=== PATIENT | female | born 1950 | race Caucasian/White ===

== ENCOUNTER → 2017-04-08 | Outpatient (CLI) | payer BC ==
[~2017-04-08] MED LIST: AGM875 PO; MULT-506
--- NOTE | 2017-04-09 15:17 | MAMMOGRAPHY REPORT ---
BILATERAL DIGITAL SCREENING MAMMOGRAM TOMOSYNTHESIS WITH CAD: 04/08/2017 CLINICAL HISTORY: Routine screening examination. TECHNIQUE: Breast tomosynthesis in addition to standard 2D mammography was performed. Current study was also evaluated with a Computer Aided Detection (CAD) system. COMPARISON: Comparison is made to exams dated: 04/05/2016 mammogram, 03/30/2015 mammogram, 2 mammogram, 11/23/2013 mammogram, 03/19/2011 mammogram, and 02/15/2010 mammogram - [facility]. BREAST COMPOSITION: There are scattered areas of fibroglandular density in both breasts. FINDINGS: There is a stable intramammary lymph node in the right upper outer quadrant. Stable asymme try in the lateral right breast. No suspicious mass, architectural distortion or cluster of microcal cifications is seen. IMPRESSION: ACR BI-RADS CATEGORY 1: NEGATIVE There is no mammographic evidence of malignancy. A 1 year screening mammogram is recommended. The pa tient will receive written notification of the results. Approximately 10% of breast cancers are not detected with mammography. A negative mammographic report should not delay biopsy if a clinically suggestive mass is present. Steph Mazariegos M.D. ay/:04/08/2017 17:23:07 Product Advisor: Maricel MASTERS(Nguyen)(Bj), [facility] letter sent: Normal 1/2 BI-RADS Code: ACR BI-RADS Category 1: Negative
== END | disposition home or self-care (01) ==
LOC: C.MAMM 08:42
PROVIDERS: ATTEND Family Medicine
DX: Z12.31 Encounter for screening mammogram for malignant neoplasm of breast (principal)

== ENCOUNTER 2021-09-13 09:55 | Inpatient (IN) ==
[2021-09-13] MEDS ORDERED: VANCOMYCIN CONSULT ACTIVE PRN ×2 (10:06→19:58)
[2021-09-13] MEDS ORDERED: VANCOMYCIN HCL 1,500 MG in SODIUM CHLORIDE 0.9% 500 ML IV ONE (10:06)
[2021-09-13] MEDS ORDERED: cefTRIAXone SODIUM 1,000 MG/50 ML BAG IV STA (10:06)
--- NOTE | 2021-09-13 10:22 | XRay Report ---
XR chest 1V portable CLINICAL HISTORY: SEPSIS. COMPARISON STUDY: No previous studies for comparison. TECHNIQUE: 1 view of the chest FINDINGS: Single frontal view of the chest demonstrates the cardiomediastinal silhouette to be within normal li mits. The lungs are clear of alveolar opacities. There is no evidence for pleural effusion. There is no evidence for vascular congestion. There is no acute osseous pathology. IMPRESSION: 1. No acute cardiopulmonary disease. ACT 112: Negative or not required by law. Electronically signed by: Denis Alvarez M.D. 09/13/2021 10:21 AM
[2021-09-13 10:48] LABS: Basophils # (auto) 0.03 K/uL (0-0.2); Basophils % (auto) 0.3 %; Eosinophils # (auto) 0.06 K/uL (0-0.5); Eosinophils % (auto) 0.7 %; Hematocrit (blood only) 37.2 % (37-47); Hemoglobin 12.3 g/dL (12.0-16.0); Immature Granulocytes # (auto) 0.01 K/uL (0.00-0.02); Immature Granulocytes % (auto) 0.1 %; Lymphocytes # (auto) 1.65 K/uL (1.2-3.4); Lymphocytes % (auto) 18.1 %; Mean Corpuscular Hemoglobin 29.5 pg (25-34); Mean Corpuscular Hgb Conc 33.1 g/dL (32-36); Mean Corpuscular Volume 89.2 fL (80-100); Mean Platelet Volume 9.3 fL (7.4-10.4); Monocytes # (auto) 1.07 K/uL (0.11-0.59); Monocytes % (auto) 11.7 %; Neutrophils # (auto) 6.31 K/uL (1.4-6.5); Neutrophils % (auto) 69.1 %; Platelet Count 436 K/uL (130-400); RDW Coefficient of Variation 12.8 % (11.5-14.5); RDW Standard Deviation 41.6 fL (36.4-46.3); Red Blood Count 4.17 M/uL (4.2-5.4); White Blood Count 9.13 K/uL (4.8-10.8)
[2021-09-13 11:02] LABS: INR 1.1 (0.9-1.1); Partial Thromboplastin Time 27.9 Seconds (21.0-31.0); Prothrombin Time 11.7 Seconds (9.0-12.0)
--- NOTE | 2021-09-13 11:03 | Emergency Department Note ---
Impression & Plan Bacteremia, Fever of unknown origin, Heart murmur ED Provider Note NAME: BRAD JAIMES AGE: 71 SEX: F : 1950 ARRIVES VIA: Walk-In INFORMANT: Patient, ED PROVIDER(S): Tashi Felix DO CHIEF COMPLAINT: Fever HPI: The patient is a 71-year-old female who presented to the emergency department for an evaluation of fever. The patient states that she has had febrile illness for approximately 3 weeks. She has had a temperature as high as 102-103. She has been alternating Motrin and Tylenol with good relief of her symptoms but then the fever always comes back. She has been noticing pain behind her legs. She denies having any back pain but states sometimes she has pelvic pain which is more into her hips. She denies having any recent traveling or falls. She did have dental work done in June where she had a crown placed. She has no history of heart murmur. She has been seeing her outpatient family doctor for a work-up. She had blood cultures done recently. She was sent to the emergency department today because one blood culture was positive for gram-positive cocci in clusters. She is currently not taking any antibiotics. She has had no rashes. She denies having any lower extremity swelling or shortness of breath. She is had no cough recently. She denies having any hemoptysis. ROS: See above HPI for pertinent positives & negatives. A total of 10 systems reviewed and were otherwise negative. PAST MEDICAL HISTORY: See Below PAST SURGICAL HISTORY: See Below FAMILY HISTORY: See Below SOCIAL HISTORY: See Below HOME MEDICATIONS: See Below ALLERGIES: GENERAL: Patient is awake alert in no acute distress patient is resting comfortably and showing no signs of anxiety EYES: The conjunctivae are clear. The pupils are round and reactive. EARS, NOSE, MOUTH AND THROAT: The nose is without any evidence of any deformity. Mucous membranes are moist. The recent dental crown was noted. There is no swelling of the gumline. NECK: The neck is nontender and supple. RESPIRATORY: Normal respiratory effort is noted there is no evidence of wheezing rhonchi or rales CARDIOVASCULAR: Regular rate and rhythm was noted to auscultation. Systolic murmur was suggested. GASTROINTESTINAL: The abdomen is soft. Abdomen is nontender. PELVIS: The Pelvis is stable. No tenderness to palpation is noted. BACK: No midline tenderness or or step-off noted range of motion in flexion extension as well as rotation no signs of muscle spasm noted MUSCULOSKELETAL/EXTREMITIES: There is no evidence of gross deformity full range of motion is noted in the hips and shoulders. SKIN: There is no obvious evidence of any rash. There are no petechiae, pallor or cyanosis noted. NEUROLOGIC: Patient is awake alert and oriented x3 VITALS: See Below PHYSICAL EXAMINATION: MEDICAL DECISION MAKING: The patient is a 71-year-old female who presented to the emergency department for an evaluation of fever. The patient's had ongoing fever for the last few weeks. She has been having an patient work-up by her primary care physician. Your she was noted to have a positive blood culture from 2 days ago. She was sent to the emergency department for further evaluation. She did have a history of recent dental work. I think I might be able to hear a heart murmur. I discussed the patient's laboratory and radiographic studies with her. She was treated in the emergency department with antibiotics for presumed bacteremia. I discussed her case with the on-call [facility]. They have agreed to evaluate the patient in the emergency department for further management and disposition. Triage Nursing notes reviewed. Prior medical records reviewed Vital Signs: reviewed and remarkable for elevated blood pressure. Differential diagnosis: Viral syndrome, otitis, pharyngitis, pneumonia, influenza, meningitis, urinary tract infection, sepsis, bacteremia, as well as other pathologies. ER treatment provided: See below Diagnostics interpreted by me: ECG: EKG was obtained in the emergency department. My interpretation is normal sinus rhythm at 88 bpm. There is no ectopy. There is no acute ST segment abnormalities noted. This was compared to a tracing from July 162001. No changes were noted. Cardiac Monitoring: An order was placed for continuous cardiac monitoring. The monitor shows a rate of 84 bpm with sinus rhythm. Laboratory studies: As stated above and show below. Imaging studies: See below Consultation(s): I discussed this case with Dr. Mancera who is on-call for the [facility] group. Past Med/Surg History Social History Smoking Status: Never smoker Feels Safe at Home: Yes Allergies Allergies Allergy/AdvReac Type Severity Reaction Status Date / Time MUSCLE RELAXANTS AdvReac Unknown unable to Uncoded 09/13/21 11:31 void Home Meds Home Medications Medication Instructions Recorded Confirmed Glucosamin & Chond Tab 1 tab PO BID 09/13/21 09/13/21 acetaminophen 500 mg tablet 500 mg PO Q6H PRN 09/13/21 09/13/21 (Tylenol Extra Strength) [id number] tablet 1 tab PO DAILY 09/13/21 09/13/21 cholecalciferol (vitamin D3) 50 50 mcg PO DAILY 09/13/21 09/13/21 mcg (2,000 unit) tablet (Vitamin D3) cinnamon bark 500 mg capsule 500 mg PO Q OTHER DAY 09/13/21 09/13/21 (Cinnamon) coQ10 (ubiquinol) 200 mg capsule 0 mg PO DAILY 09/13/21 09/13/21 beck (Zingiber officinalis) 250 0 mg PO Q OTHER DAY 09/13/21 09/13/21 mg capsule (beck extract) ibuprofen 200 mg tablet (IBU-200) 200 mg PO Q6H PRN 09/13/21 09/13/21 lysine 500 mg capsule 500 mg PO DAILY 09/13/21 09/13/21 multivitamin with minerals 1 tab PO DAILY 09/13/21 09/13/21 omega-3 fatty acids 1,000 mg PO DAILY 09/13/21 09/13/21 red yeast rice 600 mg capsule 0 mg PO BID 09/13/21 09/13/21 Results & Data (ED) Vital Signs Vital Signs - 24 hr 09/13/21 09:59 09/13/21 10:30 09/13/21 10:42 Temperature 37.2 C Temperature Source Oral Pulse Rate 100 H 88 Pulse Rate from SpO2 Sensor 88 Respiratory Rate 18 14 Blood Pressure 168/95 H Blood Pressure Mean 119 Pulse Oximetry 95 97 98 Oxygen Delivery Method Room Air Room Air Sepsis Recent Fever Within 48 Hours No Sepsis New/Unexplained Change in Mental Status No Sepsis Action Taken by Nursing No Action Required 09/13/21 11:00 09/13/21 11:30 09/13/21 12:00 Temperature Temperature Source Pulse Rate 88 85 83 Pulse Rate from SpO2 Sensor 87 85 84 Respiratory Rate 17 17 15 Blood Pressure 130/92 143/92 H 139/84 Blood Pressure Mean 104 109 102 Pulse Oximetry 98 98 97 Oxygen Delivery Method Sepsis Recent Fever Within 48 Hours Sepsis New/Unexplained Change in Mental Status Sepsis Action Taken by Nursing 09/13/21 12:30 09/13/21 13:07 09/13/21 13:30 Temperature Temperature Source Pulse Rate 87 175 H 92 H Pulse Rate from SpO2 Sensor 87 92 H Respiratory Rate 18 16 23 Blood Pressure 150/93 H 141/87 H Blood Pressure Mean 112 105 Pulse Oximetry 98 97 Oxygen Delivery Method Sepsis Recent Fever Within 48 Hours Sepsis New/Unexplained Change in Mental Status Sepsis Action Taken by Nursing 09/13/21 14:00 09/13/21 14:30 09/13/21 15:00 Temperature Temperature Source Pulse Rate 86 88 84 Pulse Rate from SpO2 Sensor 86 94 H 84 Respiratory Rate 16 26 H 26 H Blood Pressure 148/91 H 165/94 H 160/89 H Blood Pressure Mean 110 117 112 Pulse Oximetry 98 96 98 Oxygen Delivery Method Sepsis Recent Fever Within 48 Hours Sepsis New/Unexplained Change in Mental Status Sepsis Action Taken by [facility] Medications Current Medication List: was personally reviewed by me Laboratory Data Attestation: I reviewed the patient's lab results. Result diagrams: 09/13/21 10:36 09/13/21 10:36 Lab Results 09/13/21 09/13/21 09/13/21 Range/Units 10:36 10:36 10:36 WBC 9.13 (4.8-10.8) K/uL RBC 4.17 L (4.2-5.4) M/uL Hgb 12.3 (12.0-16.0) g/dL Hct 37.2 (37-47) % MCV 89.2 (80-100) fL MCH 29.5 (25-34) pg MCHC 33.1 (32-36) g/dL RDW Std Deviation 41.6 (36.4-46.3) fL RDW Coeff of Jasmyn 12.8 (11.5-14.5) % Plt Count 436 H (130-400) K/uL MPV 9.3 (7.4-10.4) fL Immature Gran % (Auto) 0.1 % Neut % (Auto) 69.1 % Lymph % (Auto) 18.1 % Braxton % (Auto) 11.7 % Eos % (Auto) 0.7 % Baso % (Auto) 0.3 % Neut # (Auto) 6.31 (1.4-6.5) K/uL Lymph # (Auto) 1.65 (1.2-3.4) K/uL Braxton # (Auto) 1.07 H (0.11-0.59) K/uL Eos # (Auto) 0.06 (0-0.5) K/uL Baso # (Auto) 0.03 (0-0.2) K/uL Immature Gran # (Auto) 0.01 (0.00-0.02) K/uL ESR 83 H (0-30) mm/hr PT 11.7 (9.0-12.0) Seconds INR 1.1 (0.9-1.1) APTT 27.9 (21.0-31.0) Seconds PTT Ratio 1.0 Sodium (136-145) mmol/L Potassium (3.5-5.1) mmol/L Chloride (98-107) mmol/L Carbon Dioxide (21-32) mmol/L Anion Gap (3-11) BUN (6-23) mg/dl Creatinine (0.6-1.2) mg/dl Est Cr Clr Drug Dosing ml/min Est GFR ( Amer) ml/min Est GFR (Non-Af Amer) ml/min BUN/Creatinine Ratio (10-20) Glucose (70-99(Fasting)) mg/dl Lactate (0.4-2.0) mmol/L Calcium (8.5-10.1) mg/dl Magnesium (1.7-2.4) mg/dl Total Bilirubin (0.2-1.0) mg/dl AST (13-39) U/L ALT (7-52) U/L Alkaline Phosphatase (34-104) U/L Troponin I (0-0.04) ng/ml C-Reactive Protein (0-0.5) mg/dl Total Protein (6.0-8.3) gm/dl Albumin (3.4-5.0) gm/dl Globulin (2.5-4.0) gm/dl Albumin/Globulin Ratio (0.9-2) Procalcitonin (0-0.5) ng/ml Urine Color Urine Appearance (Clear) Urine pH (4.5-7.5) Ur Specific Bradford (1.000-1.030) Urine Protein (Negative) Urine Glucose (UA) (Negative) Urine Ketones (Negative) Urine Blood (Negative) Urine Nitrite (Negative) Urine Bilirubin (Negative) Urine Urobilinogen (Negative) Ur Leukocyte Esterase (Negative) Urine WBC (Auto) (0-5) /hpf Urine RBC (Auto) (0-4) /hpf U Hyaline Cast (Auto) (0-5) /lpf U Epithel Cells (Auto) (0-5) /lpf Urine Bacteria (Auto) (Negative) Anaplasma Smear Lyme Disease IgG Ab (Negative) Lyme Disease IgM Ab (Negative) Monoscreen (Negative) 09/13/21 09/13/21 09/13/21 Range/Units 10:36 10:36 10:36 WBC (4.8-10.8) K/uL RBC (4.2-5.4) M/uL Hgb (12.0-16.0) g/dL Hct (37-47) % MCV (80-100) fL MCH (25-34) pg MCHC (32-36) g/dL RDW Std Deviation (36.4-46.3) fL RDW Coeff of Jasmyn (11.5-14.5) % Plt Count (130-400) K/uL MPV (7.4-10.4) fL Immature Gran % (Auto) % Neut % (Auto) % Lymph % (Auto) % Braxton % (Auto) % Eos % (Auto) % Baso % (Auto) % Neut # (Auto) (1.4-6.5) K/uL Lymph # (Auto) (1.2-3.4) K/uL Braxton # (Auto) (0.11-0.59) K/uL Eos # (Auto) (0-0.5) K/uL Baso # (Auto) (0-0.2) K/uL Immature Gran # (Auto) (0.00-0.02) K/uL ESR (0-30) mm/hr PT (9.0-12.0) Seconds INR (0.9-1.1) APTT (21.0-31.0) Seconds PTT Ratio Sodium 138 (136-145) mmol/L Potassium 3.9 (3.5-5.1) mmol/L Chloride 103 (98-107) mmol/L Carbon Dioxide 29 (21-32) mmol/L Anion Gap 6 (3-11) BUN 13 (6-23) mg/dl Creatinine 0.57 L (0.6-1.2) mg/dl Est Cr Clr Drug Dosing 91.5 ml/min Est GFR ( Amer) 108.9 ml/min Est GFR (Non-Af Amer) 93.9 ml/min BUN/Creatinine Ratio 22.8 H (10-20) Glucose 97 (70-99(Fasting)) mg/dl Lactate 0.8 (0.4-2.0) mmol/L Calcium 8.9 (8.5-10.1) mg/dl Magnesium 1.9 (1.7-2.4) mg/dl Total Bilirubin 0.6 (0.2-1.0) mg/dl AST 19 (13-39) U/L ALT 31 (7-52) U/L Alkaline Phosphatase 71 (34-104) U/L Troponin I < 0.03 (0-0.04) ng/ml C-Reactive Protein 4.89 H (0-0.5) mg/dl Total Protein 6.9 (6.0-8.3) gm/dl Albumin 3.3 L (3.4-5.0) gm/dl Globulin 3.6 (2.5-4.0) gm/dl Albumin/Globulin Ratio 0.9 (0.9-2) Procalcitonin < 0.05 (0-0.5) ng/ml Urine Color Urine Appearance (Clear) Urine pH (4.5-7.5) Ur Specific Bradford (1.000-1.030) Urine Protein (Negative) Urine Glucose (UA) (Negative) Urine Ketones (Negative) Urine Blood (Negative) Urine Nitrite (Negative) Urine Bilirubin (Negative) Urine Urobilinogen (Negative) Ur Leukocyte Esterase (Negative) Urine WBC (Auto) (0-5) /hpf Urine RBC (Auto) (0-4) /hpf U Hyaline Cast (Auto) (0-5) /lpf U Epithel Cells (Auto) (0-5) /lpf Urine Bacteria (Auto) (Negative) Anaplasma Smear Lyme Disease IgG Ab (Negative) Lyme Disease IgM Ab (Negative) Monoscreen (Negative) 09/13/21 09/13/21 09/13/21 Range/Units 13:45 13:45 13:45 WBC (4.8-10.8) K/uL RBC (4.2-5.4) M/uL Hgb (12.0-16.0) g/dL Hct (37-47) % MCV (80-100) fL MCH (25-34) pg MCHC (32-36) g/dL RDW Std Deviation (36.4-46.3) fL RDW Coeff of Jasmyn (11.5-14.5) % Plt Count (130-400) K/uL MPV (7.4-10.4) fL Immature Gran % (Auto) % Neut % (Auto) % Lymph % (Auto) % Braxton % (Auto) % Eos % (Auto) % Baso % (Auto) % Neut # (Auto) (1.4-6.5) K/uL Lymph # (Auto) (1.2-3.4) K/uL Braxton # (Auto) (0.11-0.59) K/uL Eos # (Auto) (0-0.5) K/uL Baso # (Auto) (0-0.2) K/uL Immature Gran # (Auto) (0.00-0.02) K/uL ESR (0-30) mm/hr PT (9.0-12.0) Seconds INR (0.9-1.1) APTT (21.0-31.0) Seconds PTT Ratio Sodium (136-145) mmol/L Potassium (3.5-5.1) mmol/L Chloride (98-107) mmol/L Carbon Dioxide (21-32) mmol/L Anion Gap (3-11) BUN (6-23) mg/dl Creatinine (0.6-1.2) mg/dl Est Cr Clr Drug Dosing ml/min Est GFR ( Amer) ml/min Est GFR (Non-Af Amer) ml/min BUN/Creatinine Ratio (10-20) Glucose (70-99(Fasting)) mg/dl Lactate (0.4-2.0) mmol/L Calcium (8.5-10.1) mg/dl Magnesium (1.7-2.4) mg/dl Total Bilirubin (0.2-1.0) mg/dl AST (13-39) U/L ALT (7-52) U/L Alkaline Phosphatase (34-104) U/L Troponin I (0-0.04) ng/ml C-Reactive Protein (0-0.5) mg/dl Total Protein (6.0-8.3) gm/dl Albumin (3.4-5.0) gm/dl Globulin (2.5-4.0) gm/dl Albumin/Globulin Ratio (0.9-2) Procalcitonin (0-0.5) ng/ml Urine Color Yellow Urine Appearance Clear (Clear) Urine pH 6.0 (4.5-7.5) Ur Specific Bradford 1.007 (1.000-1.030) Urine Protein Negative (Negative) Urine Glucose (UA) Negative (Negative) Urine Ketones Trace H (Negative) Urine Blood Trace H (Negative) Urine Nitrite Negative (Negative) Urine Bilirubin Negative (Negative) Urine Urobilinogen Negative (Negative) Ur Leukocyte Esterase Trace H (Negative) Urine WBC (Auto) 1-5 (0-5) /hpf Urine RBC (Auto) 0-4 (0-4) /hpf U Hyaline Cast (Auto) 0 (0-5) /lpf U Epithel Cells (Auto) 0-5 (0-5) /lpf Urine Bacteria (Auto) Negative (Negative) Anaplasma Smear See Comment Lyme Disease IgG Ab Negative (Negative) Lyme Disease IgM Ab Negative (Negative) Monoscreen Negative (Negative) Administered Medications Discontinued Medications Ceftriaxone Sodium (Rocephin) 1,000 mg in 50 mls @ 100 mls/hr IV NOW STA Stop: 09/13/21 10:35 Last Infusion: 09/13/21 11:27 Dose: 0 mls/hr Documented by: [id number] Admin: 09/13/21 10:58 Dose: 100 mls/hr Documented by: [id number] Vancomycin HCl 1,500 mg/ (Sodium Chloride) 530 mls @ 200 mls/hr IV NOW ONE Stop: 09/13/21 12:44 Last Infusion: 09/13/21 14:29 Dose: 0 mls/hr Documented by: [id number] Admin: 09/13/21 11:28 Dose: 200 mls/hr Documented by: [id number] Imaging Data Radiologist's Impression: Chest X-Ray 09/13/21 10:06 XR chest 1V portable CLINICAL HISTORY: SEPSIS. COMPARISON STUDY: No previous studies for comparison. TECHNIQUE: 1 view of the chest FINDINGS: Single frontal view of the chest demonstrates the cardiomediastinal silhouette to be within normal limits. The lungs are clear of alveolar opacities. There is no evidence for pleural effusion. There is no evidence for vascular congestion. There is no acute osseous pathology. IMPRESSION: 1. No acute cardiopulmonary disease. ACT 112: Negative or not required by law. Electronically signed by: Denis Alvarez M.D. 09/13/2021 10:21 AM Ankle X-Ray 09/13/21 13:18 XR ankle LT min 3V routine CLINICAL HISTORY: new left ankle swelling. COMPARISON STUDY: No previous studies for comparison. TECHNIQUE: 3 left ankle views FINDINGS: Bones: There is no evidence for an acute fracture or dislocation. There is a small calcaneal spur at the origin of the plantar fascia. There is no lytic or blastic lesion. Joints: The joint spaces are maintained. The bones are in anatomic alignment. Soft tissues: There is no focal soft tissue abnormality. There is no radiopaque foreign body. IMPRESSION: 1. No acute osseous pathology. Calcaneal spur. ACT 112: Negative or not required by law. Electronically signed by: Denis Alvarez M.D. 09/13/2021 2:17 PM Discharge Plan Visit Data Chief Complaint: Abnormal Labs/Diagnostic Testing Stated Complaint: DR CORTEZ, ABNORMAL LABS ED Provider: Tashi Felix Discharge Problem: Bacteremia, Fever of unknown origin, Heart murmur Patient Disposition: Being Evaluated by Hospitalist Forms Stand Alone Forms: [facility] Prescriptions Prescriptions: No Action multivitamin with minerals Tablet 1 tab PO DAILY RF: 0 lysine 500 mg Capsule 500 mg PO DAILY RF: 0 acetaminophen [Tylenol Extra Strength] 500 mg Tablet 500 mg PO Q6H PRN (Reason: Fever Or Pain) RF: 0 [id number] Tablet 1 tab PO DAILY RF: 0 beck extract 250 mg Capsule 0 mg PO Q OTHER DAY RF: 0 ibuprofen [IBU-200] 200 mg Tablet 200 mg PO Q6H PRN (Reason: Fever Or Pain) RF: 0 Fish Oil Capsule 1,000 mg PO DAILY RF: 0 cinnamon bark [Cinnamon] 500 mg Capsule 500 mg PO Q OTHER DAY RF: 0 red yeast rice 600 mg Capsule 0 mg PO BID RF: 0 cholecalciferol (vitamin D3) [Vitamin D3] 50 mcg (2,000 unit) Tablet 50 mcg PO DAILY RF: 0 coQ10 (ubiquinol) 200 mg Capsule 0 mg PO DAILY RF: 0 Glucosamin & Chond Tab 1 tab PO BID RF: 0 Referrals Referrals: Kuldip Mello MD [Primary Care Provider] -
[2021-09-13 11:04] LABS: Troponin I < 0.03 ng/ml (0-0.04)
[2021-09-13 11:09] LABS: Alanine Aminotransferase 31 U/L (7-52); Albumin Globulin Ratio 0.9 (0.9-2); Albumin Level 3.3 gm/dl (3.4-5.0); Alkaline Phosphatase 71 U/L (34-104); Anion Gap 6 (3-11); Aspartate Aminotransferase 19 U/L (13-39); BUN Creatinine Ratio 22.8 (10-20); Bilirubin,Total 0.6 mg/dl (0.2-1.0); Blood Urea Nitrogen 13 mg/dl (6-23); C Reactive Protein 4.89 mg/dl (0-0.5); Calcium 8.9 mg/dl (8.5-10.1); Carbon Dioxide 29 mmol/L (21-32); Chloride 103 mmol/L (98-107); Creatinine Clr Calc Pharmacy 91.5 ml/min; Est GFR (African American) 108.9 ml/min; Est GFR (Non-African American) 93.9 ml/min; Globulin 3.6 gm/dl (2.5-4.0); Glucose 97 mg/dl (70-99(Fasting)); Magnesium 1.9 mg/dl (1.7-2.4); Potassium 3.9 mmol/L (3.5-5.1); Sodium 138 mmol/L (136-145); Total Protein 6.9 gm/dl (6.0-8.3)
--- NOTE | 2021-09-13 12:05 | History & Physical Report ---
Date of Service September 13, 2021 Assessment & Plan (1) Bacteremia: Plan: -Outpatient blood culture grew gram-positive cocci in clusters. In the setting of ongoing fever of unknown origin for 3 to 4 weeks with large joint stiffness, murmur appreciated on exam. Dental work end of June. Presentation is concerning for endocarditis. -Echo ordered, repeat blood cultures. -Chest CT, lumbar MRI, CT abdomen+pelvis ordered for further evaluation of fever with unknown origin without significant findings and with c/o lower back pain. -Also will recheck for Lyme, anaplasmosis, EBV, Monospot -Started empirically on vancomycin and ceftriaxone in ED, will continue this, c an tailor as more results become available. -Tylenol PRN for Tylenol, pain. (2) Fever: (3) Ankle edema: Plan: -Without injury or pain, new over the past week. -X-Ray today without evidence of fracture or other acute process. (4) Hyperlipidemia: Plan: -Previously on Crestor, discontinued due to elevated LFTs. -Will continue to monitor LFTs. (5) Thrombocytosis: Plan: And acute phase reactant to ongoing inflammation and/or infection (6) Lower back pain: (7) Arthralgia: Plan: -Admit to [facility] with telemetry. -SCDs, Lovenox for DVT prophylaxis. -Full code. History of Present Illness Primary Care Provider: Kuldip Mello MD Patient is 71-year-old female with past medical history of hyperlipidemia and crown placement at the end of June who presents today upon referral from her PCP due to ongoing fever for the past 3 weeks with a recent blood culture positive for gram positive cocci in clusters. Patient had been feeling in her normal state of health until the end of June, several yoga poses were more difficult for her due to stiffness at her hip, knee, shoulder and neck joints. She made an extra effort to stretch out more and hydrate, however stiffness persisted. She does notice that is initially worst in the morning, after several hours of moving, it is better. She also notes stiffness and difficulty with locomotion within the first few steps of ambulation, however after several strides, is better. Then in the beginning of August, patient began to develop low-grade fevers around 99-100.0 every few days. She had taken several home Covid tests which had all been negative. Over the past several weeks, these fevers have become more frequent occurring nearly every day. They are typically around 100-101, however she notes highest temp has been 103. She has been taking Tylenol and ibuprofen for them, which they have been responding to, however always come back. She had recent dental work in June when a crown was placed, otherwise denies any recent procedures, denies IV drug use, denies recent travel, known tick bites, however patient is outside in her yard often. Also, she has noticed mild left ankle edema over the past week without recent injury or any pain. Other than the above, patient has been feeling generally well without rashes, chills, weight loss, appetite loss, chest pain, palpitations, shortness of breath, cough, nausea, vomiting, abdominal pain. Joint stiffness is limited to the bilateral hips, knees, neck, lower back, and shoulders. Ibuprofen and chiropractor appts has helped with this somewhat. She has not had any significant pain at the site of the dental crown placement. Denies cardiac history, no valve replacement. Also denies a personal history of rheumatologic or autoimmune disease, does report mother and grandmother had ALS, otherwise no family history of rheumatologic or autoimmune disease. Patient had been on Crestor since March 2021, however the middle of August she reports her AST and ALT became elevated so she was instructed to discontinue the Crestor. On September 11, AST and ALT continued to rise to 75 and 97 respectively. Otherwise, she is on several supplements, Tylenol ibuprofen for fever/joint stiffness, otherwise no other home medications. Allergies Allergy/AdvReac Type Severity Reaction Status Date / Time MUSCLE RELAXANTS AdvReac Unknown unable to Uncoded 09/13/21 11:31 void Home Medications Medication Instructions Recorded Confirmed Type Glucosamin & Chond Tab 1 tab PO BID 09/13/21 09/13/21 History acetaminophen 500 mg tablet 500 mg PO Q6H PRN 09/13/21 09/13/21 History (Tylenol Extra Strength) obazktm-obieexxkf-gcoi tablet 1 tab PO DAILY 09/13/21 09/13/21 History cholecalciferol (vitamin D3) 50 50 mcg PO DAILY 09/13/21 09/13/21 History mcg (2,000 unit) tablet (Vitamin D3) cinnamon bark 500 mg capsule 500 mg PO Q OTHER DAY 09/13/21 09/13/21 History (Cinnamon) coQ10 (ubiquinol) 200 mg capsule 0 mg PO DAILY 09/13/21 09/13/21 History beck (Zingiber officinalis) 250 0 mg PO Q OTHER DAY 09/13/21 09/13/21 History mg capsule (beck extract) ibuprofen 200 mg tablet (IBU-200) 200 mg PO Q6H PRN 09/13/21 09/13/21 History lysine 500 mg capsule 500 mg PO DAILY 09/13/21 09/13/21 History multivitamin with minerals 1 tab PO DAILY 09/13/21 09/13/21 History omega-3 fatty acids 1,000 mg PO DAILY 09/13/21 09/13/21 History red yeast rice 600 mg capsule 0 mg PO BID 09/13/21 09/13/21 History Past Med/Surg History Medical History Hyperlipidemia Family History Grandmother ALS (amyotrophic lateral sclerosis) Mother ALS (amyotrophic lateral sclerosis) Social History Smoking Status: Never smoker Second Hand Exposure: No; Do You Dip or Chew Tobacco: No; Tobacco Cessation Education Requested by Patient: No Hx Alcohol Use: Yes Alcohol type: beer and wine Hx Substance Use: No Preferred Language: Jordanian Communication Ability: Effective Maintenance Instructor Required: No Beliefs That Will Affect Care: None Current Living Situation: Spouse Other Information That Helps Us Care for You: No Feels Safe at Home: Yes Safety Concerns: Feels Safe At This Time Assistive Devices: Glasses Assistive Devices Comment: reading glasses Review of Systems Review of Systems: Constitutional: Daily fevers, but denies chills, anorexia, generalized weakness, fatigue. Eyes: No diplopia, no worsening or blurred vision ENT: normal hearing, no trouble swallowing Respiratory: No cough, sputum, dyspnea at rest or on exertion Cardiovascular: No chest pain, tightness or palpitations Abdomen: No pain, nausea, vomiting, diarrhea or constipation Musculoskeletal: Reports neck, bilateral shoulder, bilateral hip, and bilateral knee joint stiffness x2 months, left ankle swelling x1 week, denies joint warmth or redness Neurologic: No weakness, numbness/tingling, or balance problems Psychiatric: No anxiety or depression Skin: No rash or itch Physical Exam Physical Exam: General: awake, alert, no apparent distress Head: Normocephalic, atraumatic ENT: PERRL, EOMI, no pharyngeal exudate, mucous membranes moist Chest: Clear to auscultation, on room air, no adventitious breath sounds Cardiac: Regular rate and rhythm, no obvious murmur appreciated; no JVD, normal peripheral pulses, good capillary refill Abdominal: NABS x 4 quadrants, soft, nontender to palpation, no rebound, guarding or tenderness Extremities: Normal inspection, no peripheral edema or erythema, calfs nontender to palpation Psych: Normal mood and affect Neuro: AAO x 3, strength intact bilaterally and rated 5/5, no motor deficits, speech is clear, no peripheral sensory deficits Skin: No rash or erythema, specifically no [place] lesions or Osler nodes, no splinter hemorrhages Results & Data Results & Data ([facility]) Vital Signs (Past 12 Hours) Vital Signs Temp Pulse Resp BP Pulse Ox 09/13/21 10:30 97 09/13/21 09:59 37.2 C 100 H 18 168/95 H 95 Laboratory Results Abnormal lab results 09/13/21 09/13/21 09/13/21 Range/Units 10:36 10:36 10:36 RBC 4.17 L (4.2-5.4) M/uL Plt Count 436 H (130-400) K/uL [place] # (Auto) 1.07 H (0.11-0.59) K/uL ESR 83 H (0-30) mm/hr Creatinine 0.57 L (0.6-1.2) mg/dl BUN/Creatinine Ratio 22.8 H (10-20) C-Reactive Protein 4.89 H (0-0.5) mg/dl Albumin 3.3 L (3.4-5.0) gm/dl Diagnostic Findings Chest X-Ray 09/13/21 10:06 XR chest 1V portable CLINICAL HISTORY: SEPSIS. COMPARISON STUDY: No previous studies for comparison. TECHNIQUE: 1 view of the chest FINDINGS: Single frontal view of the chest demonstrates the cardiomediastinal silhouette to be within normal limits. The lungs are clear of alveolar opacities. There is no evidence for pleural effusion. There is no evidence for vascular congestion. There is no acute osseous pathology. IMPRESSION: 1. No acute cardiopulmonary disease. ACT 112: Negative or not required by law. Electronically signed by: Denis Alvarez M.D. 09/13/2021 10:21 AM Ankle X-Ray 09/13/21 13:18 XR ankle LT min 3V routine CLINICAL HISTORY: new left ankle swelling. COMPARISON STUDY: No previous studies for comparison. TECHNIQUE: 3 left ankle views FINDINGS: Bones: There is no evidence for an acute fracture or dislocation. There is a small calcaneal spur at the origin of the plantar fascia. There is no lytic or blastic lesion. Joints: The joint spaces are maintained. The bones are in anatomic alignment. Soft tissues: There is no focal soft tissue abnormality. There is no radiopaque foreign body. IMPRESSION: 1. No acute osseous pathology. Calcaneal spur. ACT 112: Negative or not required by law. Electronically signed by: Denis Alvarez M.D. 09/13/2021 2:17 PM Abdomen/Pelvis CT 09/13/21 14:41 CT abd pelvis IV con only CLINICAL HISTORY: fever unknown origin,low back pain, evaluate for absces COMPARISON STUDY: No previous studies for comparison. CT DOSE: 514.14 mGy.cm TECHNIQUE: Standard CT of the Abdomen and Pelvis was performed with IV contrast. A dose lowering technique was utilized adhering to the principles of ALARA. Contrast Volume: Optiray 320, 91 ml. The patient did not receive oral contrast. FINDINGS: Abdominal cavity: There is no evidence for abdominal mass, adenopathy or ascites. Liver: There is homogeneous attenuation of the liver parenchyma. There is no evidence for enhancing mass lesion. Spleen: There is homogeneous attenuation of the splenic parenchyma. There is no enhancing mass lesion. Pancreas: There is homogeneous attenuation of the pancreatic parenchyma. There is no evidence for mass lesion or peripancreatic fluid collection. Gall Bladder: The gallbladder is well distended with no evidence for intraluminal calculi, wall thickening or pericholecystic edema. Adrenal glands: There is a low-attenuation left adrenal nodule measuring 3.4 x 1.6 cm. This is most characteristic of an adenoma. The right adrenal gland is within normal limits. Kidneys: There is homogeneous attenuation of the renal parenchyma bilaterally. There is no evidence for renal calculus or hydronephrosis. There is no evidence for enhancing mass. Bowel: The bowel loops are normally placed within the abdomen and pelvis without evidence for dilatation or obstruction. There is no evidence for mass lesion. There is very minimal sigmoid diverticulosis without evidence for diverticulitis. There are no inflammatory changes present. There is no evidence for free air. The appendix is not visualized. Bladder: The bladder is within normal limits with no evidence for focal mass, calculus or diverticulum. There is a pessary-type appliance present adjacent to the floor of the bladder. : There is no evidence for pelvic mass or adenopathy. There is no evidence for pelvic ascites. Vasculature: There is no evidence for aneurysmal dilatation of the abdominal aorta. Atherosclerotic calcification is present. Osseous structures: There is no acute osseous pathology. Degenerative changes are seen. Please see MR of the lumbar spine for further evaluation. IMPRESSION: 1. No acute intra-abdominal or pelvic abnormality. Additional nonacute findings are delineated above. ACT 112: Negative or not required by law. Electronically signed by: Denis Alvarez M.D. 09/13/2021 5:[address] 09/13/21 14:41 CT chest diagnostic w con CLINICAL HISTORY: fever unknown origin COMPARISON STUDY: Portable chest from 09/13/2021 CT DOSE: TECHNIQUE: Standard CT of the Chest was performed with IV contrast. A dose lowering technique was utilized adhering to the principles of ALARA. Contrast Volume: Optiray 320, 91 ml FINDINGS: Thyroid: There is a multinodular thyroid present. Airway: The airway is clear. No endobronchial lesion is identified. Lungs: There is atelectasis versus scarring at the right lung base. The lungs are otherwise clear of acute alveolar opacities, air bronchograms or pulmonary nodules. Pleura: There is no evidence for pleural effusion. There is no evidence for pneumothorax. Mediastinum: There is no evidence for pathologic adenopathy. The heart size is within normal limits. Coronary artery calcifications present. The thoracic aorta is within normal limits. Atherosclerotic calcification is present. There is no evidence for pericardial effusion. Osseous structures: There is no acute osseous pathology. IMPRESSION: 1. Atelectasis versus scarring at the right lung base. 2. Otherwise, no acute chest disease. 3. Coronary artery calcification. ACT 112: Negative or not required by law. Electronically signed by: Denis Alvarez M.D. 09/13/2021 5:24 PM Lumbar Spine MRI 09/13/21 14:41 MR lumbar spine wo/w con CLINICAL HISTORY: bacteremia,lower back pain, evaluate for abscess,discitis/OM. TECHNIQUE: Multiplanar multisequence images of the Lumbar Spine were performed with and without IV contrast. Contrast Volume: 7.5 ml of Gadavist COMPARISON: None. FINDINGS: There is no evidence for vertebral body fracture. The heights of the vertebral bodies are maintained. There is degenerative grade 1/4 spondylolisthesis of L4 on L5. The remaining lumbar vertebral bodies are in anatomic alignment. Homogeneous marrow signal is seen without evidence for marrow edema or marrow replacement. There is no MR evidence for osteomyelitis. There is no abnormal enhancement following contrast administration. There is no MR evidence for discitis. T12-L1: The disc space height is maintained. There are no focal disc protrusions or extrusions identified. The thecal sac and epidural fat are maintained. The neural foramen are patent bilaterally. There is no evidence for nerve root encroachment. The facet joints are within normal limits. L1-2: The disc space height is maintained. There are no focal disc protrusions or extrusions identified. The thecal sac and epidural fat are maintained. The neural foramen are patent bilaterally. There is no evidence for nerve root encroachment. The facet joints are within normal limits. L2-3: There is mild disc space narrowing with diffuse bulging of the annulus present. There are no focal disc protrusions or extrusions identified. However, there is flattening of thecal sac anteriorly and mild encroachment upon the origin of the left neural foramen compared to the right. Thickening of ligamentum flavum is also present bilaterally. The combination of these findings produce mild central canal stenosis There is no evidence for nerve root encroachment. Mild hypertrophic facet joint disease is seen bilaterally. L3-4: There is mild disc space narrowing with diffuse bulging of the annulus present. There are no focal disc protrusions or extrusions identified. However, there is flattening of thecal sac anteriorly and mild encroachment upon the origin of the left neural foramen compared to the right. Thickening of ligamentum flavum is also present bilaterally. The combination of these findings produce mild central canal stenosis There is no evidence for nerve root encroachment. Mild to moderate hypertrophic facet joint disease is seen bilaterally. L4-5: There is again degenerative grade 1/4 spondylolisthesis of L4 on L5 with moderate disc space narrowing and diffuse bulging of the annulus present. There are no focal disc protrusions or extrusions identified. There is flattening of thecal sac anteriorly and encroachment upon the neural foramen bilaterally. Moderate hypertrophic facet joint disease with thickening of ligamentum flavum is present bilaterally. The combination of these findings produce moderate central canal stenosis and mild bilateral foraminal stenosis. No focal nerve root impingement is seen. L5-S1: There is mild disc space narrowing with diffuse bulging of the annulus present. There are no focal disc protrusions or extrusions identified. Due to the increase amount of epidural fat anterior to the thecal sac at this level, no encroachment upon the thecal sac or nerve roots is seen. The neural foramen are patent bilaterally. There is mild hypertrophic facet joint disease present bilaterally. IMPRESSION: 1. No MR evidence for discitis or osteomyelitis. 2. Degenerative disc and degenerative facet joint disease is present from L2 through S1 with segmental central canal and foraminal stenosis present as delineated above. ECG Additional Comments: Normal sinus rhythm, Possible Left atrial enlargement Borderline ECG When compared with ECG of 16-JUL-2001 18:09, No significant change was found. Code Status & VTE Plan Code Status Full code. VTE Prophylaxis Plan VTE Prophylaxis will be ordered: Yes Supervising Physician Co-Signing Physician Notes PA Supervision Note: I personally saw and examined the patient. I verified all oliveira points and agree with KAVEH Diop with the following exceptions and/or additions: This patient is a 71-year-old female with history of hyperlipidemia who presents with 3 to 4 weeks of low-grade fevers almost daily and bilateral polyarthralgias, undergoing outpatient work-up and found to have gram-positive cocci in clusters in 1 of 2 blood culture sets drawn on 09/11. She denies headaches or lightheadedness, no dental pain, no sore throat or cold symptoms. No chest pains or shortness of breath, no cough, no abdominal pains or diarrhea. No skin rashes anywhere. No known tick bites. She did notice perhaps some mildly painful and enlarged lymphadenopathy in the left armpit at one point which is now resolved. She has not had any recent travel does not go camping but does live in an area that is near the [facility]. I reviewed her lab tests on her online portal from [facility]-she has had an elevated ESR and CRP, elevated AST and ALT which are now normalized, and thrombocytosis. Her blood cultures from 09/11 are now finalized and did grow out coagulase- negative Staphylococcus in 1 of 2 sets. O- Vitals reviewed Gen: AAOx3, NAD HEENT: Anicteric sclerae, EOMI, oropharynx is clear no evidence of infection in the mouth or gums, no erythema in the oropharynx CV: RRR 1/6 systolic murmur at the left sternal border nl S1S2 Pulm: CTAB no wcr Abd: +BS soft NT ND no masses or hernias, no hepatosplenomegaly Ext: No edema, 2+ DP pulses, very minimal trace edema of the left ankle, no erythema or effusion of any joints, no significant tenderness to palpation over the entire spine over spinous processes or paraspinous muscles Skin: No rashes, warm/dry Neuro: Full strength throughout Labs and rads reviewed, ECG reviewed A/S-23-uvas-old female here with fever of unknown origin x4 weeks with polyarthralgias, and 1/2 blood cultures positive for coagulase-negative Staphylococcus No known source at this time Did have recent dental work but coagulase-negative Staphylococcus would not be consistent with oral source Had mildly elevated AST and ALT last week but now resolved With thrombocytosis likely is an acute phase reactant, mild monocytosis on CBC Covid negative, Lyme negative, anaplasmosis smear ordered and negative, DNA pending Monospot negative, EBV pending ESR and CRP are quite elevated and increased from previous With polyarthralgias and lower back pain and complaint of previous left axillary pain and possible lymphadenopathy-check CT chest/abdomen/pelvis and MRI lumbar spine to look for lymphadenopathy, masses or abscess, and lumbar spine epidural abscess or osteomyelitis/discitis -Add on rheumatoid factor, RASHAD, anti-CCP, hepatitis panel, and CMV for the morning -Repeat blood cultures drawn here -Start empiric antibiotics -Coagulase-negative Staphylococcus in the blood cultures may very well be a contaminant, but unclear at this time -If no source found or rheumatologic issue found, consider infectious disease consultation PG Care Time/CCT Total # of Minutes Spent Total Time Spent with Patient: Total time spent is greater than 50% in coordination of care (as documented) at patient's floor/unit and/or counseling patient: Coding Level of Care Code 53210 Initial Inpt Care Lvl 2 Diagnoses Bacteremia R78.81 Hyperlipidemia E78.5 Ankle edema M25.473 Thrombocytosis D75.839 Lower back pain M54.50 Arthralgia M25.50 Fever R50.9
--- NOTE | 2021-09-13 12:15 | Electrocardiogram Report ---
Test Reason : Blood Pressure : / mmHG Vent. Rate : 088 BPM Atrial Rate : 088 BPM P-R Int : 160 ms QRS Dur : 094 ms QT Int : 354 ms P-R-T Axes : 061 028 050 degrees QTc Int : 428 ms Poor data quality, interpretation may be adversely affected Normal sinus rhythm Left atrial enlargement Borderline ECG When compared with ECG of 16-JUL-2001 18:09, No significant change was found Confirmed by Tashi Ferguson ([id number]) on 09/13/2021 12:15:15 PM Referred By: Confirmed By:Tashi Ferguson
--- NOTE | 2021-09-13 14:18 | XRay Report ---
XR ankle LT min 3V routine CLINICAL HISTORY: new left ankle swelling. COMPARISON STUDY: No previous studies for comparison. TECHNIQUE: 3 left ankle views FINDINGS: Bones: There is no evidence for an acute fracture or dislocation. There is a small calcaneal spur at the origin of the plantar fascia. There is no lytic or blastic lesion. Joints: The joint spaces are maintained. The bones are in anatomic alignment. Soft tissues: There is no focal soft tissue abnormality. There is no radiopaque foreign body. IMPRESSION: 1. No acute osseous pathology. Calcaneal spur. ACT 112: Negative or not required by law. Electronically signed by: Denis Alvarez M.D. 09/13/2021 2:17 PM
[2021-09-13 14:25] LABS: Appearance Urine Clear (Clear); Bacteria Urine Automated Negative (Negative); Bilirubin Urine Negative (Negative); Blood Urine Trace (Negative); Cast Urine Automated 0 /lpf (0-5); Color Urine Yellow; Epithelial Cell Urine Auto 0-5 /lpf (0-5); Glucose Urine UA Negative (Negative); Ketones Urine Trace (Negative); Leukocyte Esterase Urine Trace (Negative); Nitrite Urine Negative (Negative); Protein Urine Negative (Negative); RBC Urine Automated 0-4 /hpf (0-4); Specific Gravity Urine 1.007 (1.000-1.030); Urobilinogen Urine Negative (Negative)
[2021-09-13 14:51] LABS: Monotest Negative (Negative)
--- NOTE | 2021-09-13 15:21 | XCELERA ---
[id number]
[2021-09-13 15:42] LABS: Lyme Ab IgG w/WB Rflx Negative (Negative)
[2021-09-13 15:43] LABS: Lyme Ab IgM w/WB Rflx Negative (Negative)
[2021-09-13] MEDS ORDERED: GADOBUTROL 65ML VIAL IV ONE (16:04)
--- NOTE | 2021-09-13 16:45 | Magnetic Resonance Report ---
MR lumbar spine wo/w con CLINICAL HISTORY: bacteremia,lower back pain, evaluate for abscess,discitis/OM. TECHNIQUE: Multiplanar multisequence images of the Lumbar Spine were performed with and without IV c ontrast. Contrast Volume: 7.5 ml of Gadavist COMPARISON: None. FINDINGS: There is no evidence for vertebral body fracture. The heights of the vertebral bodies are maintained. There is degenerative grade 1/4 spondylolisthesis of L4 on L5. The remaining lumbar verte bral bodies are in anatomic alignment. Homogeneous marrow signal is seen without evidence for marrow edema or marrow replacement. There is no MR evidence for osteomyelitis. There is no abnormal enhancem ent following contrast administration. There is no MR evidence for discitis. T12-L1: The disc space height is maintained. There are no focal disc protrusions or extrusions ident ified. The thecal sac and epidural fat are maintained. The neural foramen are patent bilaterally. Th ere is no evidence for nerve root encroachment. The facet joints are within normal limits. L1-2: The disc space height is maintained. There are no focal disc protrusions or extrusions identif ied. The thecal sac and epidural fat are maintained. The neural foramen are patent bilaterally. Ther e is no evidence for nerve root encroachment. The facet joints are within normal limits. L2-3: There is mild disc space narrowing with diffuse bulging of the annulus present. There are no f ocal disc protrusions or extrusions identified. However, there is flattening of thecal sac anteriorl y and mild encroachment upon the origin of the left neural foramen compared to the right. Thickening of ligamentum flavum is also present bilaterally. The combination of these findings produce mild cent ral canal stenosis There is no evidence for nerve root encroachment. Mild hypertrophic facet joint di sease is seen bilaterally. L3-4: There is mild disc space narrowing with diffuse bulging of the annulus present. There are no f ocal disc protrusions or extrusions identified. However, there is flattening of thecal sac anteriorl y and mild encroachment upon the origin of the left neural foramen compared to the right. Thickening of ligamentum flavum is also present bilaterally. The combination of these findings produce mild cent ral canal stenosis There is no evidence for nerve root encroachment. Mild to moderate hypertrophic fa cet joint disease is seen bilaterally. L4-5: There is again degenerative grade 1/4 spondylolisthesis of L4 on L5 with moderate disc space na rrowing and diffuse bulging of the annulus present. There are no focal disc protrusions or extrusion s identified. There is flattening of thecal sac anteriorly and encroachment upon the neural foramen bilaterally. Moderate hypertrophic facet joint disease with thickening of ligamentum flavum is presen t bilaterally. The combination of these findings produce moderate central canal stenosis and mild christine ateral foraminal stenosis. No focal nerve root impingement is seen. L5-S1: There is mild disc space narrowing with diffuse bulging of the annulus present. There are no focal disc protrusions or extrusions identified. Due to the increase amount of epidural fat anterior to the thecal sac at this level, no encroachment upon the thecal sac or nerve roots is seen. The grupo ral foramen are patent bilaterally. There is mild hypertrophic facet joint disease present bilaterall y. IMPRESSION: 1. No MR evidence for discitis or osteomyelitis. 2. Degenerative disc and degenerative facet joint disease is present from L2 through S1 with segmenta l central canal and foraminal stenosis present as delineated above. ACT 112: Negative or not required by law. Electronically signed by: Denis Alvarez M.D. 09/13/2021 4:43 PM
[2021-09-13] MEDS ORDERED: OPTIRAY 320 100ml IV ONE (16:55)
--- NOTE | 2021-09-13 17:25 | CT Scan Report ---
CT chest diagnostic w con CLINICAL HISTORY: fever unknown origin COMPARISON STUDY: Portable chest from 09/13/2021 CT DOSE: TECHNIQUE: Standard CT of the Chest was performed with IV contrast. A dose lowering technique was u tilized adhering to the principles of ALARA. Contrast Volume: Optiray 320, 91 ml FINDINGS: Thyroid: There is a multinodular thyroid present. Airway: The airway is clear. No endobronchial lesion is identified. Lungs: There is atelectasis versus scarring at the right lung base. The lungs are otherwise clear of acute alveolar opacities, air bronchograms or pulmonary nodules. Pleura: There is no evidence for pleural effusion. There is no evidence for pneumothorax. Mediastinum: There is no evidence for pathologic adenopathy. The heart size is within normal limits. Coronary artery calcifications present. The thoracic aorta is within normal limits. Atherosclerotic c alcification is present. There is no evidence for pericardial effusion. Osseous structures: There is no acute osseous pathology. IMPRESSION: 1. Atelectasis versus scarring at the right lung base. 2. Otherwise, no acute chest disease. 3. Coronary artery calcification. ACT 112: Negative or not required by law. Electronically signed by: Denis Alvarez M.D. 09/13/2021 5:24 PM
--- NOTE | 2021-09-13 17:30 | CT Scan Report ---
CT abd pelvis IV con only CLINICAL HISTORY: fever unknown origin,low back pain, evaluate for absces COMPARISON STUDY: No previous studies for comparison. CT DOSE: 514.14 mGy.cm TECHNIQUE: Standard CT of the Abdomen and Pelvis was performed with IV contrast. A dose lowering tiago hnique was utilized adhering to the principles of ALARA. Contrast Volume: Optiray 320, 91 ml. The patient did not receive oral contrast. FINDINGS: Abdominal cavity: There is no evidence for abdominal mass, adenopathy or ascites. Liver: There is homogeneous attenuation of the liver parenchyma. There is no evidence for enhancing m ass lesion. Spleen: There is homogeneous attenuation of the splenic parenchyma. There is no enhancing mass lesion . Pancreas: There is homogeneous attenuation of the pancreatic parenchyma. There is no evidence for mas s lesion or peripancreatic fluid collection. Gall Bladder: The gallbladder is well distended with no evidence for intraluminal calculi, wall thick ening or pericholecystic edema. Adrenal glands: There is a low-attenuation left adrenal nodule measuring 3.4 x 1.6 cm. This is most c haracteristic of an adenoma. The right adrenal gland is within normal limits. Kidneys: There is homogeneous attenuation of the renal parenchyma bilaterally. There is no evidence f or renal calculus or hydronephrosis. There is no evidence for enhancing mass. Bowel: The bowel loops are normally placed within the abdomen and pelvis without evidence for dilatat ion or obstruction. There is no evidence for mass lesion. There is very minimal sigmoid diverticulosi s without evidence for diverticulitis. There are no inflammatory changes present. There is no evidenc e for free air. The appendix is not visualized. Bladder: The bladder is within normal limits with no evidence for focal mass, calculus or diverticulu m. There is a pessary-type appliance present adjacent to the floor of the bladder. : There is no evidence for pelvic mass or adenopathy. There is no evidence for pelvic ascites. Vasculature: There is no evidence for aneurysmal dilatation of the abdominal aorta. Atherosclerotic c alcification is present. Osseous structures: There is no acute osseous pathology. Degenerative changes are seen. Please see MR of the lumbar spine for further evaluation. IMPRESSION: 1. No acute intra-abdominal or pelvic abnormality. Additional nonacute findings are delineated above. ACT 112: Negative or not required by law. Electronically signed by: Denis Alvarez M.D. 09/13/2021 5:29 PM
[2021-09-13] MEDS ORDERED: VANCOMYCIN HCL 1,250 MG in SODIUM CHLORIDE 0.9% 500 ML IV SCH (19:58)
[2021-09-13] MEDS ORDERED: ACETAMINOPHEN 500 MG TAB PO PRN (19:58)
[2021-09-13] MEDS ORDERED: ONDANSETRON INJ 2 MG/ML 2 ML VIAL IV PRN (19:58)
[2021-09-13] MEDS ORDERED: POLYETHYLENE (MIRALAX) 17 GM PACK PO PRN (19:58)
[2021-09-13] MEDS: ENOXAPARIN INJ 40 MG/0.4 ML SYR SQ SCH (21:08)
[2021-09-13] MEDS: VANCOMYCIN HCL 1,250 MG in SODIUM CHLORIDE 0.9% 250 ML IV SCH (21:42)
[2021-09-14] MEDS: CHOLECALCIFEROL 1,000 UNITS 25 MCG TAB PO SCH (08:21)
[2021-09-14] MEDS: CEROVITE ADV FORMULA TAB PO SCH (08:21)
[2021-09-14 08:23] LABS: Basophils # (auto) 0.03 K/uL (0-0.2); Basophils % (auto) 0.4 %; Eosinophils # (auto) 0.16 K/uL (0-0.5); Hematocrit (blood only) 35.1 % (37-47); Hemoglobin 11.9 g/dL (12.0-16.0); Immature Granulocytes # (auto) 0.01 K/uL (0.00-0.02); Immature Granulocytes % (auto) 0.1 %; Lymphocytes # (auto) 1.62 K/uL (1.2-3.4); Lymphocytes % (auto) 20.3 %; Mean Corpuscular Hemoglobin 29.6 pg (25-34); Mean Corpuscular Hgb Conc 33.9 g/dL (32-36); Mean Corpuscular Volume 87.3 fL (80-100); Mean Platelet Volume 9.1 fL (7.4-10.4); Monocytes # (auto) 1.03 K/uL (0.11-0.59); Monocytes % (auto) 12.9 %; Neutrophils # (auto) 5.14 K/uL (1.4-6.5); Neutrophils % (auto) 64.3 %; Platelet Count 441 K/uL (130-400); RDW Coefficient of Variation 12.7 % (11.5-14.5); RDW Standard Deviation 41.1 fL (36.4-46.3); Red Blood Count 4.02 M/uL (4.2-5.4); White Blood Count 7.99 K/uL (4.8-10.8)
[2021-09-14 08:36] LABS: Albumin Globulin Ratio 0.9 (0.9-2); Albumin Level 3.2 gm/dl (3.4-5.0); BUN Creatinine Ratio 16.1 (10-20); Bilirubin,Total 0.6 mg/dl (0.2-1.0); Calcium 8.7 mg/dl (8.5-10.1); Creatinine Clr Calc Pharmacy 93.4 ml/min; Est GFR (African American) 109.5 ml/min; Est GFR (Non-African American) 94.5 ml/min; Globulin 3.4 gm/dl (2.5-4.0); Potassium 3.5 mmol/L (3.5-5.1); Total Protein 6.6 gm/dl (6.0-8.3)
[2021-09-14] MEDS ORDERED: cefTRIAXone SODIUM 1,000 MG in DEXTROSE 5% 50 ML IV SCH (09:00)
[2021-09-14] MEDS: VANCOMYCIN HCL 1,250 MG in SODIUM CHLORIDE 0.9% 250 ML IV SCH (11:24)
--- NOTE | 2021-09-14 15:24 | Hospitalist Progress Note ---
Date of Service September 14, 2021 Assessment & Plan (1) Bacteremia: Plan: -Outpatient blood culture grew gram-positive cocci in clusters. In the setting of ongoing fever of unknown origin for 3 to 4 weeks with large joint stiffness, murmur appreciated on exam. Dental work end of June. Presentation is concerning for endocarditis. -Echo ordered and WNL as above, repeat blood cultures pending. -Chest CT, lumbar MRI, CT abdomen+pelvis ordered for further evaluation of fever with unknown origin without significant findings and with c/o lower back pain. -Lyme negative, anaplasmosis, CMV, EBV are all pending, Monospot negative -Started empirically on vancomycin and ceftriaxone in ED, which was continued by admitting team -Tylenol PRN for Tylenol, pain. -Rheum work up also ordered w/ RASHAD, RF, anti-CCP all pending -ESR and CRP elevated but PCT normal -Uncertain at this time if bacteremia is true or represents a skin contaminant--repeat thus far show no growth -I suspect the 1/2 +blood cx for coagulase negative staph is a contaminant (2) Fever: Plan: -Classified as FUO -Rickettsia IgM negative but IgG is mildly positive on outpatient labs reviewed by myself in [facility] -Rocephin and Vancomycin would not cover for Rickettsial infection, d/c and change to Doxycycline 100mg BID -If this is the case, fevers should dissipate within 24-72 hours of starting Doxy -Treatment will consist of 10 days -If despite this, fevers persist, may need to re-evaluate the Rickettsia as the primary diagnosis -Peripheral smear ordered -Hold off on any further tests/procedures including KATHY or LP (3) Ankle edema: Plan: -Without injury or pain, new over the past week. -X-Ray today without evidence of fracture or other acute process. (4) Hyperlipidemia: Plan: -Previously on Crestor, discontinued due to elevated LFTs. -Will continue to monitor LFTs. (5) Thrombocytosis: Plan: -And acute phase reactant to ongoing inflammation and/or infection (6) Arthralgia: Plan: -Would definitely fit with a tick-bourne illness diagnosis -Tylenol and early ambulation as tolerated Plan: Interventions as outlined above Await repeat blood cultures, will review ones performed as outpatient w/ her PCP at Follow up labs in AM D/C planning--likely as early as tomorrow Plan d/w Dr. Bhakta. Admission and Anticipated Discharge Date Admission Date: September 13, 2021 Subjective Patient seen on daily rounds this morning. She reports no new complaints. Did provide a log of her fevers that have been ongoing since August 22 and been nearly daily since August 24. Temps as high as 102-103F that respond to APAP. She also describes joint achiness and tightness behind her knees. Had some left ankle swelling. Joint stiffness primarily in the morning as well as her elevated temps are noted in the morning as well. She has had no cough, congestion, h eadaches, neck stiffness, diaphoresis, n/v/d, abd pain, gu symptoms, or chest pain/sob. Had questionable positive blood culture which prompted hospitalization. Admits that she has had tick bites in the past but was treated prophylactically. She last traveled to [place] in April of 2021. UTD on all of her immunizations. Review of Systems Review of Systems: Constitutional: Nearly daily fevers (spikes of 102/103), but denies chills, anorexia, generalized weakness, fatigue. Eyes: No diplopia, no worsening or blurred vision ENT: normal hearing, no trouble swallowing Respiratory: No cough, sputum, dyspnea at rest or on exertion Cardiovascular: No chest pain, tightness or palpitations Abdomen: No pain, nausea, vomiting, diarrhea or constipation Musculoskeletal: Reports neck, bilateral shoulder, bilateral hip, and bilateral knee joint stiffness x2 months, left ankle swelling x1 week, denies joint warmth or redness Neurologic: No weakness, numbness/tingling, or balance problems Psychiatric: No anxiety or depression Skin: No rash or itch Physical Exam Physical Exam: GENERAL: 71 yo well-developed, well-nourished WF. NAD. LUNGS: Clear to auscultation bilaterally. No accessory muscle use. No W/R/R. CARDIOVASCULAR: Regular rate and rhythm. 1/6 MARK. No JVD. ABDOMEN: Soft, non-tender and non-distended. BS normal x 4 quad. EXTREMITIES: No edema. Non-tender. Peripheral pulses +2/4. NEUROLOGIC: A&O x3. No focal neurological deficits. CN II-XII grossly intact. Negative Brzudzinski PSYCHIATRIC: Cooperative. Appropriate mood and affect. SKIN: Warm, dry, intact. No rashes or lesions. Results & Data Results & Data ([facility]) Vital Signs (Past 12 Hours) Vital Signs Temp Pulse Pulse Resp BP BP Pulse Ox 09/14/21 11:28 37.1 C 84 18 153/79 H 95 09/14/21 08:00 83 09/14/21 07:59 37.5 C 83 18 150/81 H 97 09/14/21 04:00 37.1 C 88 18 164/73 H 94 Laboratory Results 09/14/21 08:02 09/14/21 08:02 Diagnostic Findings 09/13/21 Echocardiogram LV systolic function is normal No regional wall motion abnormalities noted Ejection fraction=65-70% There is mild mitral regurgitation No valvular vegetation identified No prior study for comparison PG Care Time/CCT Total # of Minutes Spent Total Time Spent with Patient: Total time spent is greater than 50% in coordination of care (as documented) at patient's floor/unit and/or counseling patient: Coding Level of Care Code 44450 Subseq Hosp Care Lvl 2 Diagnoses Bacteremia R78.81 Fever R50.9 Ankle edema M25.473 Hyperlipidemia E78.5 Thrombocytosis D75.839 Arthralgia M25.50
[2021-09-14] MEDS: DOXYCYCLINE HYCLATE 100 MG in DEXTROSE 5% 100 ML IV SCH (16:27)
[2021-09-14] MEDS: ENOXAPARIN INJ 40 MG/0.4 ML SYR SQ SCH (20:59)
[2021-09-15] MEDS: DOXYCYCLINE HYCLATE 100 MG in DEXTROSE 5% 100 ML IV SCH (04:08)
[2021-09-15 05:56] LABS: HBSAG NON-REACTIVE (NON-REACTIVE); Hepatitis A Antibody IgM NON-REACTIVE (NON-REACTIVE); Hepatitis B Core Antibody IgM NON-REACTIVE (NON-REACTIVE)
[2021-09-15 08:11] LABS: Basophils # (auto) 0.03 K/uL (0-0.2); Basophils % (auto) 0.4 %; Eosinophils # (auto) 0.15 K/uL (0-0.5); Eosinophils % (auto) 1.9 %; Hematocrit (blood only) 35.5 % (37-47); Hemoglobin 11.5 g/dL (12.0-16.0); Immature Granulocytes # (auto) 0.02 K/uL (0.00-0.02); Immature Granulocytes % (auto) 0.2 %; Lymphocytes # (auto) 1.56 K/uL (1.2-3.4); Lymphocytes % (auto) 19.3 %; Mean Corpuscular Hemoglobin 28.8 pg (25-34); Mean Corpuscular Hgb Conc 32.4 g/dL (32-36); Mean Corpuscular Volume 88.8 fL (80-100); Mean Platelet Volume 9.4 fL (7.4-10.4); Monocytes # (auto) 1.09 K/uL (0.11-0.59); Monocytes % (auto) 13.5 %; Neutrophils # (auto) 5.24 K/uL (1.4-6.5); Neutrophils % (auto) 64.7 %; Platelet Count 423 K/uL (130-400); RDW Coefficient of Variation 12.6 % (11.5-14.5); RDW Standard Deviation 40.5 fL (36.4-46.3); White Blood Count 8.09 K/uL (4.8-10.8)
[2021-09-15] MEDS: CHOLECALCIFEROL 1,000 UNITS 25 MCG TAB PO SCH (08:18)
[2021-09-15] MEDS: CEROVITE ADV FORMULA TAB PO SCH (08:18)
[2021-09-15 08:48] LABS: Albumin Globulin Ratio 0.9 (0.9-2); BUN Creatinine Ratio 17.3 (10-20); Bilirubin,Total 0.5 mg/dl (0.2-1.0); Calcium 8.5 mg/dl (8.5-10.1); Creatinine Clr Calc Pharmacy 100.6 ml/min; Est GFR (African American) 112.2 ml/min; Est GFR (Non-African American) 96.8 ml/min; Globulin 3.4 gm/dl (2.5-4.0); Magnesium 1.9 mg/dl (1.7-2.4); Potassium 3.6 mmol/L (3.5-5.1); Total Protein 6.4 gm/dl (6.0-8.3)
--- NOTE | 2021-09-15 11:33 | Discharge Summary ---
Date of Service September 15, 2021 Admission HPI Per Admitting Provider Patient is 71-year-old female with past medical history of hyperlipidemia and crown placement at the end of June who presents today upon referral from her PCP due to ongoing fever for the past 3 weeks with a recent blood culture positive for gram positive cocci in clusters. Patient had been feeling in her normal state of health until the end of June, several yoga poses were more difficult for her due to stiffness at her hip, knee, shoulder and neck joints. She made an extra effort to stretch out more and hydrate, however stiffness persisted. She does notice that is initially worst in the morning, after s everal hours of moving, it is better. She also notes stiffness and difficulty with locomotion within the first few steps of ambulation, however after several strides, is better. Then in the beginning of August, patient began to develop low-grade fevers around 99-100.0 every few days. She had taken several home Covid tests which had all been negative. Over the past several weeks, these fevers have become more frequent occurring nearly every day. They are typically around 100-101, however she notes highest temp has been 103. She has been taking Tylenol and ibuprofen for them, which they have been responding to, however always come back. She had recent dental work in June when a crown was placed, otherwise denies any recent procedures, denies IV drug use, denies recent travel, known tick bites, however patient is outside in her yard often. Also, she has noticed mild left ankle edema over the past week without recent injury or any pain. Other than the above, patient has been feeling generally well without rashes, chills, weight loss, appetite loss, chest pain, palpitations, shortness of breath, cough, nausea, vomiting, abdominal pain. Joint stiffness is limited to the bilateral hips, knees, neck, lower back, and shoulders. Ibuprofen and chiropractor appts has helped with this somewhat. She has not had any significant pain at the site of the dental crown placement. Denies cardiac history, no valve replacement. Also denies a personal history of rheumatologic or autoimmune disease, does report mother and grandmother had ALS, otherwise no family history of rheumatologic or autoimmune disease. Patient had been on Crestor since March 2021, however the middle of August she reports her AST and ALT became elevated so she was instructed to discontinue the Crestor. On September 11, AST and ALT continued to rise to 75 and 97 respectively. Otherwise, she is on several supplements, Tylenol ibuprofen for fever/joint stiffness, otherwise no other home medications. Principal Diagnosis FUO--suspicions of tick borne illness (Rickettsia) Discharge Exam GENERAL: 71 yo well-developed, well-nourished WF. NAD. LUNGS: Clear to auscultation bilaterally. No accessory muscle use. No W/R/R. CARDIOVASCULAR: Regular rate and rhythm. / MARK. No JVD. ABDOMEN: Soft, non-tender and non-distended. BS normal x 4 quad. EXTREMITIES: No edema. Non-tender. Peripheral pulses +2/4. NEUROLOGIC: A&O x3. No focal neurological deficits. CN II-XII grossly intact. Negative Brzudzinski PSYCHIATRIC: Cooperative. Appropriate mood and affect. SKIN: Warm, dry, intact. No rashes or lesions. Discharge Data Allergies Allergy/AdvReac Type Severity Reaction Status Date / Time MUSCLE RELAXANTS AdvReac Unknown unable to Uncoded 09/13/21 11:31 void Consultations 09/13/21 11:11 ED Decision to Admit Stat Ordered Studies Chest X-Ray 09/13/21 10:06 XR chest 1V portable CLINICAL HISTORY: SEPSIS. COMPARISON STUDY: No previous studies for comparison. TECHNIQUE: 1 view of the chest FINDINGS: Single frontal view of the chest demonstrates the cardiomediastinal silhouette to be within normal limits. The lungs are clear of alveolar opacities. There is no evidence for pleural effusion. There is no evidence for vascular congestion. There is no acute osseous pathology. IMPRESSION: 1. No acute cardiopulmonary disease. ACT 112: Negative or not required by law. Electronically signed by: Denis Alvarez M.D. 09/13/2021 10:21 AM Ankle X-Ray 09/13/21 13:18 XR ankle LT min 3V routine CLINICAL HISTORY: new left ankle swelling. COMPARISON STUDY: No previous studies for comparison. TECHNIQUE: 3 left ankle views FINDINGS: Bones: There is no evidence for an acute fracture or dislocation. There is a small calcaneal spur at the origin of the plantar fascia. There is no lytic or blastic lesion. Joints: The joint spaces are maintained. The bones are in anatomic alignment. Soft tissues: There is no focal soft tissue abnormality. There is no radiopaque foreign body. IMPRESSION: 1. No acute osseous pathology. Calcaneal spur. ACT 112: Negative or not required by law. Electronically signed by: Denis Alvarez M.D. 09/13/2021 2:17 PM Abdomen/Pelvis CT 09/13/21 14:41 CT abd pelvis IV con only CLINICAL HISTORY: fever unknown origin,low back pain, evaluate for absces COMPARISON STUDY: No previous studies for comparison. CT DOSE: 514.14 mGy.cm TECHNIQUE: Standard CT of the Abdomen and Pelvis was performed with IV contrast. A dose lowering technique was utilized adhering to the principles of ALARA. Contrast Volume: Optiray 320, 91 ml. The patient did not receive oral contrast. FINDINGS: Abdominal cavity: There is no evidence for abdominal mass, adenopathy or ascites. Liver: There is homogeneous attenuation of the liver parenchyma. There is no evidence for enhancing mass lesion. Spleen: There is homogeneous attenuation of the splenic parenchyma. There is no enhancing mass lesion. Pancreas: There is homogeneous attenuation of the pancreatic parenchyma. There is no evidence for mass lesion or peripancreatic fluid collection. Gall Bladder: The gallbladder is well distended with no evidence for intraluminal calculi, wall thickening or pericholecystic edema. Adrenal glands: There is a low-attenuation left adrenal nodule measuring 3.4 x 1.6 cm. This is most characteristic of an adenoma. The right adrenal gland is within normal limits. Kidneys: There is homogeneous attenuation of the renal parenchyma bilaterally. There is no evidence for renal calculus or hydronephrosis. There is no evidence for enhancing mass. Bowel: The bowel loops are normally placed within the abdomen and pelvis without evidence for dilatation or obstruction. There is no evidence for mass lesion. There is very minimal sigmoid diverticulosis without evidence for diverticulitis. There are no inflammatory changes present. There is no evidence for free air. The appendix is not visualized. Bladder: The bladder is within normal limits with no evidence for focal mass, calculus or diverticulum. There is a pessary-type appliance present adjacent to the floor of the bladder. : There is no evidence for pelvic mass or adenopathy. There is no evidence for pelvic ascites. Vasculature: There is no evidence for aneurysmal dilatation of the abdominal aorta. Atherosclerotic calcification is present. Osseous structures: There is no acute osseous pathology. Degenerative changes are seen. Please see MR of the lumbar spine for further evaluation. IMPRESSION: 1. No acute intra-abdominal or pelvic abnormality. Additional nonacute findings are delineated above. ACT 112: Negative or not required by law. Electronically signed by: Denis Alvarez M.D. 09/13/2021 5:[address] 09/13/21 14:41 CT chest diagnostic w con CLINICAL HISTORY: fever unknown origin COMPARISON STUDY: Portable chest from 09/13/2021 CT DOSE: TECHNIQUE: Standard CT of the Chest was performed with IV contrast. A dose lowering technique was utilized adhering to the principles of ALARA. Contrast Volume: Optiray 320, 91 ml FINDINGS: Thyroid: There is a multinodular thyroid present. Airway: The airway is clear. No endobronchial lesion is identified. Lungs: There is atelectasis versus scarring at the right lung base. The lungs are otherwise clear of acute alveolar opacities, air bronchograms or pulmonary nodules. Pleura: There is no evidence for pleural effusion. There is no evidence for pneumothorax. Mediastinum: There is no evidence for pathologic adenopathy. The heart size is within normal limits. Coronary artery calcifications present. The thoracic aorta is within normal limits. Atherosclerotic calcification is present. There is no evidence for pericardial effusion. Osseous structures: There is no acute osseous pathology. IMPRESSION: 1. Atelectasis versus scarring at the right lung base. 2. Otherwise, no acute chest disease. 3. Coronary artery calcification. ACT 112: Negative or not required by law. Electronically signed by: Denis Alvarez M.D. 09/13/2021 5:24 PM Lumbar Spine MRI 09/13/21 14:41 MR lumbar spine wo/w con CLINICAL HISTORY: bacteremia,lower back pain, evaluate for abscess,discitis/OM. TECHNIQUE: Multiplanar multisequence images of the Lumbar Spine were performed with and without IV contrast. Contrast Volume: 7.5 ml of Gadavist COMPARISON: None. FINDINGS: There is no evidence for vertebral body fracture. The heights of the vertebral bodies are maintained. There is degenerative grade 1/4 spondylolisthesis of L4 on L5. The remaining lumbar vertebral bodies are in anatomic alignment. Homogeneous marrow signal is seen without evidence for marrow edema or marrow replacement. There is no MR evidence for osteomyelitis. There is no abnormal enhancement following contrast administration. There is no MR evidence for discitis. T12-L1: The disc space height is maintained. There are no focal disc protrusions or extrusions identified. The thecal sac and epidural fat are maintained. The neural foramen are patent bilaterally. There is no evidence for nerve root encroachment. The facet joints are within normal limits. L1-2: The disc space height is maintained. There are no focal disc protrusions or extrusions identified. The thecal sac and epidural fat are maintained. The neural foramen are patent bilaterally. There is no evidence for nerve root encroachment. The facet joints are within normal limits. L2-3: There is mild disc space narrowing with diffuse bulging of the annulus present. There are no focal disc protrusions or extrusions identified. However, there is flattening of thecal sac anteriorly and mild encroachment upon the origin of the left neural foramen compared to the right. Thickening of ligamentum flavum is also present bilaterally. The combination of these findings produce mild central canal stenosis There is no evidence for nerve root encroachment. Mild hypertrophic facet joint disease is seen bilaterally. L3-4: There is mild disc space narrowing with diffuse bulging of the annulus present. There are no focal disc protrusions or extrusions identified. However, there is flattening of thecal sac anteriorly and mild encroachment upon the origin of the left neural foramen compared to the right. Thickening of ligamentum flavum is also present bilaterally. The combination of these findings produce mild central canal stenosis There is no evidence for nerve root encroachment. Mild to moderate hypertrophic facet joint disease is seen bilate rally. L4-5: There is again degenerative grade 1/4 spondylolisthesis of L4 on L5 with moderate disc space narrowing and diffuse bulging of the annulus present. There are no focal disc protrusions or extrusions identified. There is flattening of thecal sac anteriorly and encroachment upon the neural foramen bilaterally. Moderate hypertrophic facet joint disease with thickening of ligamentum flavum is present bilaterally. The combination of these findings produce moderate central canal stenosis and mild bilateral foraminal stenosis. No focal nerve root impingement is seen. L5-S1: There is mild disc space narrowing with diffuse bulging of the annulus present. There are no focal disc protrusions or extrusions identified. Due to the increase amount of epidural fat anterior to the thecal sac at this level, no encroachment upon the thecal sac or nerve roots is seen. The neural foramen are patent bilaterally. There is mild hypertrophic facet joint disease present bilaterally. IMPRESSION: 1. No MR evidence for discitis or osteomyelitis. 2. Degenerative disc and degenerative facet joint disease is present from L2 through S1 with segmental central canal and foraminal stenosis present as delineated above. ACT 112: Negative or not required by law. Electronically signed by: Denis Alvarez M.D. 09/13/2021 4:43 PM 09/13/21 Echocardiogram LV systolic function is normal No regional wall motion abnormalities noted Ejection fraction=65-70% There is mild mitral regurgitation No valvular vegetation identified No prior study for comparison Hospital Course (1) Bacteremia: -Outpatient blood culture grew gram-positive cocci in clusters. In the setting of ongoing fever of unknown origin for 3 to 4 weeks with large joint stiffness, murmur appreciated on exam. Dental work end of June. Presentation is concerning for endocarditis. Pt subsequently hospitalized for further work up. -Echo ordered and WNL as above -Started empirically on vancomycin and ceftriaxone in ED, which was continued by admitting team -Tylenol PRN pain or fever ordered -ESR and CRP elevated but PCT normal -Repeat blood cultures collected in ED thus far NGTD, pt only had 1/2 +blood cultures for coagulase negative staph, believe this to be contaminant (2) Fever: -Classified as FUO -Chest CT, lumbar MRI, CT abdomen+pelvis ordered for further evaluation of fever with unknown origin without significant findings and with c/o lower back pain. -Anaplasmosis DNA, CMV, EBV ordered and are pending -Rickettsia IgM negative but IgG is mildly positive on outpatient labs reviewed by myself in [facility]--pt with recent travel to [place] in April 2021 -Rocephin and Vancomycin would not cover for Rickettsial infection, d/c and change to Doxycycline 100mg BID -If this is the case, fevers should dissipate within 24-72 hours of starting Doxy -Treatment will consist of 10 days -If despite this, fevers persist, may need to re-evaluate the Rickettsia as the primary diagnosis -Peripheral smear ordered and pending -Rheum work up also ordered w/ RASHAD, RF, anti-CCP all pending -Monospot, COVID, Lyme, Hepatitis, and TB testing all negative -Hold off on any further tests/procedures including KATHY or LP--this could be reconsidered if fails treatment for Rickettsia (3) Ankle edema: -Without injury or pain, new over the past week. -X-Ray today without evidence of fracture or other acute process. (4) Hyperlipidemia: -Previously on Crestor, discontinued due to elevated LFTs. -LFTs normalized, resumption of Crestor would be at discretion of PCP (5) Thrombocytosis: -And acute phase reactant to ongoing inflammation and/or infection (6) Arthralgia: -Would definitely fit with a tick-borne illness diagnosis -Tylenol and early ambulation as tolerated Pt tolerating the Doxycycline which was started last evening. No fever spikes. She has had an extensive work up to date and I do believe based on the serology from the Rickettsia antibodies warrants treatment with course of Doxycycline as outlined above. Has a scheduled appt with her PCP on 09/27 which she has been instructed to keep. If she should develop fever on or after Monday 09/18, she will need to contact her PCP as she will need further work up as she should no longer be manifesting fevers if this is truly Rickettsia. She and her verbalized understanding. Plan d/w Dr. Bhakta who has also seen and evaluated this patient prior to discharge and agrees with aforementioned. Total Time Total Time Spent Total Time Spent (In Minutes): >30 minutes Discharge Plan Discharge Items Patient Disposition: Home - Self-Care Reason For Visit: OUPT BLOOD CULTURE + FOR GRAM POSITIVE COCCI, FEVE Discharge Diagnosis: Suspected tick borne illness due to Rickettsia Activity: Resume your previous activity Non-emergency contact: Primary Care Provider Call non-emergency contact if: you have any medication questions, your symptoms worsen and you have a fever Follow-up/Referrals: Kuldip Mello MD [Primary Care Provider] - 09/22/21 12:50 pm Diet: Regular Addtl Attending Provider Instructions: * You were hospitalized due to a fever of unknown origin with questionable bacterial growth on an outpatient blood culture * Repeat blood cultures, CT scans, echocardiogram, and an extensive panel of blood tests has been performed during this hospitalization in order to dete rmine source of fever --There is NO evidence of bacterial growth or "vegetation" on any of the valves in your heart according to the echocardiogram performed --Repeat blood cultures after 48 hours have yielded NO GROWTH, thus it is highly suspected that your first positive blood culture report was contaminated by bacteria that lives on our skin --Your rheumatologic work up is still pending (looking for an underlying autoimmune issues, such as rheumatoid arthritis) --Anaplasmosis DNA test is still pending as well, but the treatment for anaplasmosis transmitted through a tick bite is the same (Doxycycline) --Your test for Lyme disease, Mononucleosis, COVID-19, Hepatitis, and Tuberculosis is all NEGATIVE * Reviewing your IgG and IgM Rickettsia serologies, your IgM was negative but IgG is mildly positive which indicates a past infection. Because of this, it is VERY LIKELY that your symptoms are directly related to an ongoing untreated Rickettsial infection. The treatment for this is a 10-day course of Doxycycline 100mg taken twice per day. * While taking Doxycycline, make sure you sit upright after taking the capsule for at least 30-60 minutes. Otherwise, it can cause indigestion. * Do not take Doxycycline with milk or calcium products and they can inhibit proper absorption. While on Doxycycline, stop your calcium supplements. * Keep your scheduled follow up with your primary healthcare provider. Be sure to contact him sooner if you start manifesting temperatures >100.4F after Monday 09/18. If your fevers and other symptoms are truly due to Rickettsial infection, you should no longer be manifesting fevers once you have been on the Doxycycline for 72 hours. * You may continue to use Tylenol or Motrin as needed for any joint aches/pains * Your liver function tests that were previously elevated have normalized. You can discuss resuming your Crestor at your next follow up with your family doctor. * At your next follow up, you will be able to review the remaining tests that are still pending at this time with your primary care doctor. Pending Studies at Discharge: Yes Studies:: EBV, RF, anti-CCP, RASHAD, CMV, Anaplasmosis DNA Stand-Alone Forms: My [facility], Smoking Cessation Medications and DC Order Prescriptions: New doxycycline hyclate 100 mg capsule 100 mg PO BID 9 Days Qty: 18 RF: 0 Continued multivitamin with minerals Tablet 1 tab PO DAILY RF: 0 lysine 500 mg Capsule 500 mg PO DAILY RF: 0 acetaminophen [Tylenol Extra Strength] 500 mg Tablet 500 mg PO Q6H PRN (Reason: Fever Or Pain) RF: 0 beck extract 250 mg Capsule 0 mg PO Q OTHER DAY RF: 0 ibuprofen [IBU-200] 200 mg Tablet 200 mg PO Q6H PRN (Reason: Fever Or Pain) RF: 0 omega-3 fatty acids Capsule 1,000 mg PO DAILY RF: 0 cinnamon bark [Cinnamon] 500 mg Capsule 500 mg PO Q OTHER DAY RF: 0 red yeast rice 600 mg Capsule 0 mg PO BID RF: 0 cholecalciferol (vitamin D3) [Vitamin D3] 50 mcg (2,000 unit) Tablet 50 mcg PO DAILY RF: 0 coQ10 (ubiquinol) 200 mg Capsule 0 mg PO DAILY RF: 0 Glucosamin & Chond Tab 1 tab PO BID RF: 0 Discontinued [id number] Tablet 1 tab PO DAILY RF: 0 Discharge Orders: Discharge Order (Routine); Ordered 09/15/21 Ordered By: Margie Gamble Admission Data Admit Date/Time: 09/13/21 13:06 Attending Provider: Jacques Bhakta Admit Provider: Cori Mancera Primary Care Provider: Kuldip Mello Other Providers: Cori Mancera Other Interventions: Discharge Summary Assessment (RN) Last Done: 09/15/21 13:10 Supervising Physician Co-Signing Physician Notes Case was discussed with ANKUSH Gamble, agree with her assessment and findings except as noted. Patient was seen prior to discharge. No continued fever, chills, sweats. Does have mild polyarthralgia. No joint warmth, no rash. Patient does have a 3-week history of intermittent fever. Rickettsial IgG was positive, IgM was negative. Agree that her symptoms could be explained by tickb orne illness for which cephalosporins, Bactrim, and other treatments was been completely ineffective. IgM could be negative due to time course and rising IgG, although distant exposure with residual IgG could also present with similar lab work. It is reasonable to pursue a course of doxycycline for treatment, with a low threshold to expand work-up if patient clinically worsens or has recurrent fevers. 1/2 blood culture bottles as outpatient with [employer] likely contaminant, and TTE did not show any signs of vegetation although it is technically insufficient to rule out endocarditis. If patient does not improve with doxycycline, has recurrent symptoms/fevers would be reasonable to pursue additional work-up including possible KATHY/LP at that time. Various serologies including autoimmune work-up remain pending at time of discharge, these should also be followed up on. Discussed plan, risks, and indications for follow-up or additional care with patient who is in agreement and understanding of the plan. Stable for discharge at time of visit. Coding Level of Care Code D/C DAY MANAGEMENT >30 MINS Diagnoses Bacteremia R78.81 Fever R50.9 Ankle edema M25.473 Hyperlipidemia E78.5 Thrombocytosis D75.839 Arthralgia M25.50
[2021-09-15 14:06] LABS: EBV Nuclear Ag Antibody >600.00 U/mL
[2021-09-15 21:56] LABS: Anti Nuclear Antibody Screen NEGATIVE (NEGATIVE); CMV IgG Antibody <0.60 U/mL; CMV IgM Antibody <30.00 AU/mL; Cyclic Citrullinated Pep IgG 44 UNITS; Rheumatoid Factor <14 IU/mL (<14)
== END 2021-09-15 14:16 | disposition home or self-care (01) | DRG 869 ==
LOC: ED 09:55 → SUATTDRO 13:06 → 2W 13:06
DX: R60.0 Localized edema; M25.50 Pain in unspecified joint; Z88.8 Allergy status to other drugs, medicaments and biological substances; M54.50 Low back pain, unspecified; D75.838 Other thrombocytosis; A79.9 Rickettsiosis, unspecified; E78.5 Hyperlipidemia, unspecified